=== PATIENT | male | born 1960 | race Caucasian/White ===

== ENCOUNTER 2018-09-03 00:15 | Observation (INO) ==
--- NOTE | 2018-09-03 00:23 | Emergency Department Note ---
Disposition Clinical Impression: Nausea & vomiting, Diarrhea, Weakness Disposition: Admitted As Inpatient Condition: Good Time of Disposition: 03:18 General Adult HPI - General Chief complaint: ED Nausea/Vomiting/Diarrhea Stated complaint: vomiting and diarrhea Time Seen by Provider: 09/03/18 00:15 Source: patient Mode of arrival: EMS Limitations: no limitations Nursing Notes Reviewed: Yes Vital Signs Reviewed: Yes - History of Present Illness HPI Narrative: Patient complains of 2 days of nausea, vomiting anmd diarhea and feeling weak. His everything he tries to eat comes back up. He thinks he may have had a fever because he is sweaty at times. He does not have a thermometer to check it with. He has not been on antibiotics recently. There has been no cough or chest pain Onset (ago): day(s) (2) Location: abdomen Radiation: non-radiation Pain Scale: 0 Worsens with: nothing Associated symptoms: Reports: nausea/vomiting - Related Data Home Medications Medication Instructions Recorded Confirmed Divalproex (12 HR) [Depakote (12 500 mg PO BID 01/27/17 09/03/18 HR)] Docusate [Colace] 200 mg PO DAILY PRN 01/27/17 09/03/18 FLUoxetine HCl [Prozac] 20 mg PO DAILY 01/27/17 09/03/18 Famotidine [Pepcid] 20 mg PO DAILY 01/27/17 09/03/18 Furosemide [Lasix] 40 mg PO DAILY 01/27/17 09/03/18 Gabapentin [Neurontin] 800 mg PO TID 01/27/17 09/03/18 Ipratropium [ATROVENT Inhaler] 1 puff IH BID PRN 01/27/17 09/03/18 Latanoprost [Xalatan] 2 drop BOTH EYES HS 01/27/17 09/03/18 Lisinopril [Zestril] 10 mg PO DAILY 01/27/17 09/03/18 Nitroglycerin [Nitrostat] 0.4 mg SL Q5M PRN 01/27/17 09/03/18 Polyethylene Glycol 3350 [MiraLAX] 17 gm PO DAILY PRN 01/27/17 09/03/18 Potassium Chloride [Klor-Con 10] 10 meq PO BID 01/27/17 09/03/18 Simvastatin [Zocor] 40 mg PO HS 01/27/17 09/03/18 Tramadol HCl [Ultram] 50 mg PO TID PRN 01/27/17 09/03/18 carBAMazepine [Tegretol Xr] 200 mg PO DAILY 01/27/17 09/03/18 Aspirin 325 mg PO DAILY 04/24/18 09/03/18 Beclomethasone Dipropionate [QVAR 2 puff IH BID 04/24/18 09/03/18 80 mcg REDIHALER] Isosorbide DInitrate [Isosorbide 30 mg PO DAILY 04/24/18 09/03/18 Dinitrate] HYDROcodone/Acet 5/325 mg [[place] 1 tab PO Q6H PRN 09/03/18 09/03/18 5-325 mg] Naproxen [Naprosyn] 500 mg PO Q12H PRN 09/03/18 09/03/18 Previous Rx's Medication Instructions Recorded Cyclobenzaprine [Flexeril] 10 mg PO TID PRN #9 tablet 04/15/17 Meloxicam 15 mg PO DAILY PRN #10 tablet 01/10/18 Cetirizine HCl [Zyrtec] 10 mg PO DAILY #4 capsule 08/07/18 predniSONE [PredniSONE] 20 mg PO BID #10 tablet 08/07/18 Allergies Allergy/AdvReac Type Severity Reaction Status Date / Time Penicillins Allergy See Verified 09/03/18 00:23 Comments All systems ED: reviewed and negative except as stated. Review of Systems: As Per HPI Constitutional: Denies: fever, chills, weakness, weight change Eyes: Denies: eye pain, eye discharge, vision change ENT ED: Denies: ear pain, throat pain, dental pain, hearing loss, epistaxis, congestion, dysphagia Cardiovascular: Denies: chest pain, palpitations, dyspnea on exertion, edema, syncope Respiratory: Denies: cough, dyspnea, wheezes, hemoptysis, stridor Past Medical History - Past Medical History Attestation: Yes The following information was validated with the patient. Source: patient, nursing notes reviewed Medical history: Reports: non-contributory Surgical history: Reports: angioplasty/stent, orthopedic, other, other Psychiatric history: Reports: anxiety - Social History Smoking Status: Current every day smoker Smokeless Tobacco Status: No Alcohol use: Reports: none Drug use: Reports: none Physical Exam - General Limitations: no limitations General appearance: alert, in no apparent distress - Head Head exam: atraumatic, normocephalic, normal inspection - Eye Eye exam: Present: normal appearance, PERRL, EOMI - ENT ENT exam: normal oropharynx, mucous membranes moist, mucous membranes dry - Neck Neck exam: Present: normal inspection, full ROM, trachea midline - Chest Chest inspection: Present: normal inspection, symmetric chest wall rise - Respiratory Respiratory exam: Present: normal lung sounds bilaterally - Cardiovascular Cardiovascular exam: Present: regular rate, normal rhythm, normal heart sounds - Abdominal Exam Abdominal exam: Present: soft, Non-Tender, normal bowel sounds. Absent: distention, guarding, rebound - Extremities Exam Extremities exam: Present: normal inspection, full ROM. Absent: tenderness, pedal edema - Back Exam Back exam: Present: normal inspection, full ROM. Absent: tenderness - Neurological Exam Neurological exam: Present: alert, oriented X3 - Psychiatric Psychiatric exam: Present: normal affect, normal mood - Skin Skin exam: Present: warm, dry, intact Course Vital Signs Temperature 97.0 F L 09/03/18 00:16 Pulse Rate 53 09/03/18 00:16 Respiratory Rate 16 09/03/18 00:16 Blood Pressure 98/55 09/03/18 00:16 O2 Sat by Pulse Oximetry 98 09/03/18 00:16 Temperature 97.6 F 09/04/18 06:21 Pulse Rate 49 09/04/18 06:21 Respiratory Rate 12 09/04/18 06:21 Blood Pressure 118/75 09/04/18 06:21 O2 Sat by Pulse Oximetry 98 09/04/18 03:27 Oxygen Delivery Oxygen Delivery Room Air Medical Decision Making - MDM Narrative Medical decision making narrative: Review the patient's medication list - Lab Data Lab results reviewed: Yes I reviewed the patient's lab results. Result diagrams: 09/04/18 06:30 09/04/18 06:30 Lab Results 09/03/18 09/03/18 09/03/18 Range/Units 00:55 00:55 00:56 WBC 8.8 (4.3-11.1) K/mcL RBC 4.43 (4.19-5.50) M/mcL Hgb 13.4 (12.9-16.9) g/dL Hct 38.4 (37.5-50.1) % MCV 86.7 (83.0-100.0) fL MCH 30.2 (28.0-33.3) pg MCHC 34.9 (31.6-35.5) g/dL RDW 12.0 (11.5-14.5) % Plt Count 147 (140-400) K/mcL MPV 10.5 (9.4-12.4) fL Seg Neutrophils % 66.0 % Band Neutrophils % 6.0 H (0-4) % Lymphocytes % 24.0 % Monocytes % 2.0 % Blast Cells % 2.0 H (0) % Neutrophils # 6.3 (1.6-8.9) K/mcL Lymphocytes # 2.1 (0.6-4.6) K/mcL Monocytes # 0.2 (0.0-1.3) K/mcL Smudge Cells Present A (Not Present) Toxic Vacuolation Present A (Not Present) Platelet Estimate Decreased L (Normal) Clumped Platelets Few A (Not Present) Anisocytosis 1+ A (Not Present) Sodium (136-145) mEq/L Potassium (3.5-5.1) mEq/L Chloride (98-107) mEq/L Carbon Dioxide (23-29) mEq/L BUN (8-23) mg/dL Creatinine (0.70-1.30) mg/dL Est GFR ( Amer) (> 60) Est GFR (Non-Af Amer) (> 60) BUN/Creatinine Ratio (6-26) Glucose (70-105) mg/dL Est Mean Plasma Glucose 146 mg/dl Hemoglobin A1c 6.7 H ( - 5.6) % Calculated Osmolality (280-300) Calcium (8.6-10.3) mg/dL Magnesium 1.9 (1.6-2.6) mg/dL Total Bilirubin (0.3-1.0) mg/dL AST (13-39) Units/L ALT (7-52) Units/L Alkaline Phosphatase (34-104) Units/L Serum Total Protein (6.4-8.9) g/dL Albumin (3.5-5.7) g/dL Globulin (2.4-3.5) g/dL Albumin/Globulin Ratio (1.1-2.2) 09/03/18 Range/Units 00:56 WBC (4.3-11.1) K/mcL RBC (4.19-5.50) M/mcL Hgb (12.9-16.9) g/dL Hct (37.5-50.1) % MCV (83.0-100.0) fL MCH (28.0-33.3) pg MCHC (31.6-35.5) g/dL RDW (11.5-14.5) % Plt Count (140-400) K/mcL MPV (9.4-12.4) fL Seg Neutrophils % % Band Neutrophils % (0-4) % Lymphocytes % % Monocytes % % Blast Cells % (0) % Neutrophils # (1.6-8.9) K/mcL Lymphocytes # (0.6-4.6) K/mcL Monocytes # (0.0-1.3) K/mcL Smudge Cells (Not Present) Toxic Vacuolation (Not Present) Platelet Estimate (Normal) Clumped Platelets (Not Present) Anisocytosis (Not Present) Sodium 139 (136-145) mEq/L Potassium 3.3 L (3.5-5.1) mEq/L Chloride 105 (98-107) mEq/L Carbon Dioxide 23 (23-29) mEq/L BUN 25 H (8-23) mg/dL Creatinine 1.05 (0.70-1.30) mg/dL Est GFR ( Amer) > 60 (> 60) Est GFR (Non-Af Amer) > 60 (> 60) BUN/Creatinine Ratio 24 (6-26) Glucose 126 H (70-105) mg/dL Est Mean Plasma Glucose mg/dl Hemoglobin A1c ( - 5.6) % Calculated Osmolality 294 (280-300) Calcium 8.6 (8.6-10.3) mg/dL Magnesium (1.6-2.6) mg/dL Total Bilirubin 0.5 (0.3-1.0) mg/dL AST 15 (13-39) Units/L ALT 17 (7-52) Units/L Alkaline Phosphatase 61 (34-104) Units/L Serum Total Protein 5.7 L (6.4-8.9) g/dL Albumin 3.6 (3.5-5.7) g/dL Globulin 2.1 L (2.4-3.5) g/dL Albumin/Globulin Ratio 1.7 (1.1-2.2) - Radiology Data Radiology results reviewed: Yes I reviewed the patient's radiology results.
[2018-09-03] MEDS ORDERED: 0.9 % Sodium Chloride 1,000 ML IVC ONE (00:26)
[2018-09-03] MEDS ORDERED: *HR* Promethazine 25 MG/ML VIAL IVP ONE (00:27)
[2018-09-03 01:39] LABS: Hematocrit 38.4 % (37.5-50.1); Hemoglobin 13.4 g/dL (12.9-16.9); Mean Corpuscular HGB Conc 34.9 g/dL (31.6-35.5); Mean Corpuscular Hemoglobin 30.2 pg (28.0-33.3); Mean Corpuscular Volume 86.7 fL (83.0-100.0); Mean Platelet Volume 10.5 fL (9.4-12.4); Platelet Count 147 K/mcL (140-400); Red Blood Count 4.43 M/mcL (4.19-5.50)
[2018-09-03 02:03] LABS: Alanine Aminotransferase 17 Units/L (7-52); Albumin 3.6 g/dL (3.5-5.7); Alkaline Phosphatase 61 Units/L (34-104); Aspartate Amino Transferase 15 Units/L (13-39); BUN/Creatinine Ratio 24 (6-26); Bilirubin,Total 0.5 mg/dL (0.3-1.0); Blood Urea Nitrogen 25 mg/dL (8-23); Calcium 8.6 mg/dL (8.6-10.3); Carbon Dioxide 23 mEq/L (23-29); Chloride 105 mEq/L (98-107); Glucose 126 mg/dL (70-105); Osmolality,Calculated 294 (280-300); Potassium 3.3 mEq/L (3.5-5.1); Sodium 139 mEq/L (136-145); Total Protein 5.7 g/dL (6.4-8.9); eGFR For Non-African Americans > 60 (> 60)
[2018-09-03 02:04] LABS: Albumin/Globulin Ratio 1.7 (1.1-2.2); Globulin 2.1 g/dL (2.4-3.5)
[2018-09-03 02:08] LABS: Anisocytosis 1+ (Not Present); Lymphocytes # 2.1 K/mcL (0.6-4.6); Monocytes # 0.2 K/mcL (0.0-1.3); Neutrophils # 6.3 K/mcL (1.6-8.9); Platelet Estimate Decreased (Normal); Smudge Cells Present (Not Present); Toxic Vacuolation Present (Not Present)
[2018-09-03 02:09] LABS: Platelet Clumps Few (Not Present)
[2018-09-03] MEDS ORDERED: *HR* HYDROcodone/Acet 5/325 mg TABLET PO PRN (04:11)
[2018-09-03] MEDS ORDERED: Naloxone 0.4 MG/ML INJ IVP PRN (04:11)
[2018-09-03] MEDS ORDERED: Ipratropium 1 PUFF INHALER IH PRN (04:11)
[2018-09-03] MEDS: 0.9 % Sodium Chloride 1,000 ML IVC SCH ×2 (04:52→11:47)
[2018-09-03] MEDS ORDERED: Divalproex (12 HR) 500 MG TABLET PO SCH (09:00)
[2018-09-03] MEDS: predniSONE 20 MG TABLET PO SCH ×2 (09:19→20:38)
[2018-09-03] MEDS: Famotidine 20 MG TABLET PO SCH (09:19)
[2018-09-03] MEDS: FLUoxetine 20 MG CAPSULE PO SCH (09:19)
[2018-09-03] MEDS: Furosemide 40 MG TABLET PO SCH (09:19)
[2018-09-03] MEDS: Aspirin 325 MG TABLET PO SCH (09:19)
[2018-09-03] MEDS: Loratadine 10 MG TABLET PO SCH (09:19)
[2018-09-03] MEDS: Gabapentin 400 MG CAPSULE PO SCH ×3 (09:20→20:38)
[2018-09-03] MEDS: CarBAMazepine XR (12 hr) 100 MG TAB PO SCH (09:20)
[2018-09-03] MEDS: traMADol 50 MG TABLET PO PRN ×2 (09:22→20:41)
[2018-09-03] MEDS: Divalproex (12 HR) 250 MG TABLET PO SCH ×2 (09:31→20:37)
[2018-09-03] MEDS: MOMETASONE FUROATE 100 mcg Inhaler IH SCH ×2 (09:53→22:09)
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
[2018-09-03] MEDS: 0.45 % Sodium Chloride w/KCl 20 MEQ/1,000 ML MLS IVC SCH (14:52)
[2018-09-03 16:01] LABS: Bilirubin,Urine Negative (Negative); Blood,Urine Negative (Negative); Clarity,Urine Clear (Clear); Glucose,Urine (UA) 100 mg/dL (Normal); Ketones,Urine Negative (Negative); Leukocyte Esterase,Urine Negative (Negative); Nitrite,Urine Negative (Negative); PH,Urine 5.5 pH Units (5.0-8.0); Protein,Urine Negative (Neg-Trace); Specific Gravity,Urine <= 1.005 (1.010-1.025); Urobilinogen,Urine Normal (Normal)
[2018-09-03 16:02] LABS: Color,Urine Light Yellow (Yellow)
[2018-09-03 17:48] LABS: Estimated Average Glucose 146 mg/dl; Hemoglobin A1C 6.7 %
[2018-09-03] MEDS ORDERED: Latanoprost 2.5 ML BOTTLE BOTH EYES SCH (21:00)
[2018-09-04] MEDS: 0.45 % Sodium Chloride w/KCl 20 MEQ/1,000 ML MLS IVC SCH ×2 (00:56→08:48)
[2018-09-04 06:23] VITALS: BP 118/75
[2018-09-04 06:54] LABS: Basophils % 0.1 %; Hematocrit 41.3 % (37.5-50.1); Hemoglobin 14.3 g/dL (12.9-16.9); Immature Granulocytes % 0.5 % (0-4); Lymphocytes # 1.1 K/mcL (0.6-4.6); Lymphocytes % 12.6 %; Mean Corpuscular HGB Conc 34.6 g/dL (31.6-35.5); Mean Corpuscular Hemoglobin 30.8 pg (28.0-33.3); Mean Corpuscular Volume 88.8 fL (83.0-100.0); Mean Platelet Volume 10.5 fL (9.4-12.4); Monocytes # 0.3 K/mcL (0.0-1.3); Monocytes % 2.8 %; Neutrophils # 7.4 K/mcL (1.6-8.9); Platelet Count 125 K/mcL (140-400); Red Blood Count 4.65 M/mcL (4.19-5.50); Red Cell Distribution Width 11.9 % (11.5-14.5)
[2018-09-04 07:20] LABS: BUN/Creatinine Ratio 15 (6-26); Blood Urea Nitrogen 11 mg/dL (8-23); Calcium 8.6 mg/dL (8.6-10.3); Carbon Dioxide 24 mEq/L (23-29); Chloride 105 mEq/L (98-107); Glucose 154 mg/dL (70-105); Osmolality,Calculated 286 (280-300); Potassium 4.4 mEq/L (3.5-5.1); Sodium 137 mEq/L (136-145); eGFR For Non-African Americans > 60 (> 60)
[2018-09-04] MEDS: CarBAMazepine XR (12 hr) 100 MG TAB PO SCH (08:50)
[2018-09-04] MEDS: traMADol 50 MG TABLET PO PRN (08:50)
[2018-09-04] MEDS: Aspirin 325 MG TABLET PO SCH (08:51)
[2018-09-04] MEDS: Furosemide 40 MG TABLET PO SCH (08:51)
[2018-09-04] MEDS: predniSONE 20 MG TABLET PO SCH (08:51)
[2018-09-04] MEDS: FLUoxetine 20 MG CAPSULE PO SCH (08:51)
[2018-09-04] MEDS: Famotidine 20 MG TABLET PO SCH (08:51)
[2018-09-04] MEDS: Gabapentin 400 MG CAPSULE PO SCH (08:51)
[2018-09-04] MEDS: Loratadine 10 MG TABLET PO SCH (08:51)
[2018-09-04] MEDS: Divalproex (12 HR) 250 MG TABLET PO SCH (08:52)
[2018-09-04] MEDS: MOMETASONE FUROATE 100 mcg Inhaler IH SCH (09:01)
--- NOTE | 2018-09-04 09:30 | Discharge Summary ---
Date of Encounter: 09/04/18 Time of Encounter: 09:20 - Discharge Diagnosis (1) AGE (acute gastroenteritis) Priority: Primary Status: Acute (2) Hypokalemia Priority: Secondary Status: Resolved (3) Hypertension Priority: Secondary Status: Chronic Qualifiers: Hypertension type: essential hypertension Qualified Code(s): I10 - Essential (primary) hypertension (4) CAD (coronary artery disease) Priority: Secondary Status: Chronic Qualifiers: Coronary Disease-Associated Artery/Lesion type: [place] artery [place] vs. transplanted heart: [place] heart Associated angina: without angina Qualified Code(s): I25.10 - Atherosclerotic heart disease of [place] coronary artery without angina pectoris Hospital course: Mr. Benitez is a 58 year old male who came to emergency room complaining of nonbloody vomiting and diarrhea onset the morning of September 01. He reports mild stomach discomfort. He felt feverish and diaphoretic. He reports his had similar symptoms. He was evaluated in emergency room and was felt to have possible early dehydration. He was admitted to [facility] floor for ongoing care needs. Initial orders were written by the emergency room physician. I saw him on September 03 and performed the history and physical. He was started on IV fluids. Anti- emetics were given as needed. He felt significantly improved and stable for discharge home when I saw him on September 04. Follow-up labs on September 04 showed WBC unchanged at 8.8 K with slight left shift on differential. Potassium had normalized to 4.4 and creatinine had decreased to 0.72. He will be discharged home and follow with his PCP Dr. Nettles within 1 week. - Time Spent with Patient Total time spent providing and/or coordinating discharge services: - Discharge Medications Prescriptions: Continue Docusate [Colace] 200 mg PO DAILY PRN PRN Reason: Constipation Simvastatin [Zocor] 40 mg PO HS Famotidine [Pepcid] 20 mg PO DAILY Potassium Chloride [Klor-Con 10] 10 meq PO BID Lisinopril [Zestril] 10 mg PO DAILY Ipratropium [ATROVENT Inhaler] 1 puff IH BID PRN PRN Reason: Shortness Of Breath carBAMazepine [Tegretol Xr] 200 mg PO DAILY Divalproex (12 HR) [Depakote (12 HR)] 500 mg PO BID Polyethylene Glycol 3350 [MiraLAX] 17 gm PO DAILY PRN PRN Reason: Constipation Tramadol HCl [Ultram] 50 mg PO TID PRN PRN Reason: Mild To Moderate Pain Nitroglycerin [Nitrostat] 0.4 mg SL Q5M PRN PRN Reason: Chest Pain Furosemide [Lasix] 40 mg PO DAILY Latanoprost [Xalatan] 2 drop BOTH EYES HS Gabapentin [Neurontin] 800 mg PO TID FLUoxetine HCl [Prozac] 20 mg PO DAILY Beclomethasone Dipropionate [QVAR 80 mcg REDIHALER] 2 puff IH BID Aspirin 325 mg PO DAILY Isosorbide DInitrate [Isosorbide Dinitrate] 30 mg PO DAILY Cetirizine HCl [Zyrtec] 10 mg PO DAILY #4 capsule predniSONE [PredniSONE] 20 mg PO BID #10 tablet Cyclobenzaprine [Flexeril] 10 mg PO TID PRN #9 tablet PRN Reason: Muscle Spasm Meloxicam 15 mg PO DAILY PRN #10 tablet PRN Reason: Pain HYDROcodone/Acet 5/325 mg [[place] 5-325 mg] 1 tab PO Q6H PRN PRN Reason: Pain Naproxen [Naprosyn] 500 mg PO Q12H PRN PRN Reason: Pain Home Medications: Divalproex (12 HR) [Depakote (12 HR)] 500 mg PO BID 01/27/17 [History] Docusate [Colace] 200 mg PO DAILY PRN 01/27/17 [History] FLUoxetine HCl [Prozac] 20 mg PO DAILY 01/27/17 [History] Famotidine [Pepcid] 20 mg PO DAILY 01/27/17 [History] Furosemide [Lasix] 40 mg PO DAILY 01/27/17 [History] Gabapentin [Neurontin] 800 mg PO TID 01/27/17 [History] Ipratropium [ATROVENT Inhaler] 1 puff IH BID PRN 01/27/17 [History] Latanoprost [Xalatan] 2 drop BOTH EYES HS 01/27/17 [History] Lisinopril [Zestril] 10 mg PO DAILY 01/27/17 [History] Nitroglycerin [Nitrostat] 0.4 mg SL Q5M PRN 01/27/17 [History] Polyethylene Glycol 3350 [MiraLAX] 17 gm PO DAILY PRN 01/27/17 [History] Potassium Chloride [Klor-Con 10] 10 meq PO BID 01/27/17 [History] Simvastatin [Zocor] 40 mg PO HS 01/27/17 [History] Tramadol HCl [Ultram] 50 mg PO TID PRN 01/27/17 [History] carBAMazepine [Tegretol Xr] 200 mg PO DAILY 01/27/17 [History] Cyclobenzaprine [Flexeril] 10 mg PO TID PRN #9 tablet 04/15/17 [Rx] Meloxicam 15 mg PO DAILY PRN #10 tablet 01/10/18 [Rx] Aspirin 325 mg PO DAILY 04/24/18 [History] Beclomethasone Dipropionate [QVAR 80 mcg REDIHALER] 2 puff IH BID 04/24/18 [History] Isosorbide DInitrate [Isosorbide Dinitrate] 30 mg PO DAILY 04/24/18 [History] Cetirizine HCl [Zyrtec] 10 mg PO DAILY #4 capsule 08/07/18 [Rx] predniSONE [PredniSONE] 20 mg PO BID #10 tablet 08/07/18 [Rx] HYDROcodone/Acet 5/325 mg [[place] 5-325 mg] 1 tab PO Q6H PRN 09/03/18 [History] Naproxen [Naprosyn] 500 mg PO Q12H PRN 09/03/18 [History] Allergies/Adverse Reactions: Allergy/AdvReac Type Severity Reaction Status Date / Time Penicillins Allergy See Verified 09/03/18 00:23 Comments Date of admission: 09/03/18 03:35 Primary care physician: Rosa Nettles - Constitutional Vitals: Temp Pulse Resp BP Pulse Ox 97.6 F 49 18 118/75 99 09/04/18 06:21 09/04/18 06:21 09/04/18 09:02 09/04/18 06:21 09/04/18 09:02 - Patient Status Disposition: Home, Self-Care Condition: Good - Discharge Instructions Follow Up With: Rosa Nettles MD [Primary Care Provider] - 1 week - Diet and Activity Activity: resume usual activities as tolerated Diet: advance to your usual diet
== END 2018-09-04 12:20 | disposition home or self-care (01) ==
LOC: INPPIK 00:15 → EMEROOPIK 00:15 → INPPIK 04:00
PROVIDERS: ADMIT Internal Medicine; ATTEND Internal Medicine